=== PATIENT | female | born 1945 | race Caucasian/White ===

== ENCOUNTER → 2016-12-23 12:10 | Day surgery (SDC) | payer MEDICARE ==
[~2016-12-23 12:10] MED LIST: Buffered Lidocaine 0.9% SYRIN* 5 ML/SYR SYRINGE INTRADERM ONE; Bupivacaine 0.25% SDV* 30 ML ONE; Dexamethasone IV* 4 MG/ML 1 ML (4 MG) IV SLOW PU ONE; Dexamethasone IV* 4 MG/ML 1 ML (4 MG) ONE; EPHEDrine (Pressors)* 50 MG/ML VIAL ONE; HYDROcodone/ACETAMIN 5-325 MG* 1 TAB PO PRN; Ketorolac INJ* 30 MG/ML 1 ML VIAL ONE; Lidocaine 2% PF * 5 ML VIAL ONE; Midazolam* 1 MG/ML 2 ML VIAL (2 MG) ONE; Mivacurium Chloride* 20 MG/10 ML VIAL IV ONE; Ondansetron INJ* 2 MG/ML VIAL ONE; PROCHLORPERAZINE INJ 5 MG/ML 2 ML VIAL IV PRN; Propofol* 10 MG/ML 20 ML BTL IV PUSH ONE; ROPIVACAINE 5 MG/ML 30 ML BTL (0.5%) ONE; ceFAZolin 2 GM PREMIX (*) 2 GM/50 ML BAG IVPB ONE; fentaNYL* 50 MCG/ML 2 ML VIAL (100 MCG VIAL) IV PRN; fentaNYL* 50 MCG/ML 2 ML VIAL (100 MCG VIAL) ONE; oxyCODONE/Acetamin 5/325 MG* TAB ONE; oxyCODONE/Acetamin 5/325 MG* TAB PO PRN
[2016-12-23 17:39] VITALS: BP 120/68
--- NOTE | 2016-12-24 10:06 | OP ---
OPERATIVE REPORT: DATE OF OPERATION: 12/23/16. DATE OF : 43. SURGEON: Surjit Glez MD. ENGINEERING RESEARCH MANAGER: ELSIE Coyne ANESTHESIOLOGIST: Dr. Tsang. ANESTHESIA: General with interscalene block. PRE-OP DIAGNOSES: Right shoulder osteoarthritis with rotator cuff tear and bicipital tendinitis. POST-OP DIAGNOSES: Right shoulder osteoarthritis with rotator cuff tear and bicipital tendinitis. OPERATIVE PROCEDURE: Right shoulder arthroscopy with, 1. Extensive glenohumeral debridement including biceps tenotomy. 2. Subacromial decompression with acromioplasty. 3. Rotator cuff repair in a double-row fashion. IMPLANTS USED: Two 4.75 Healicoil and 1 MultiFix. INDICATIONS: Margarita Juarez is a 71-year-old female, who sustained an injury while gardening, recovering from her knee arthroplasty. She fell in August 2016. She failed conservative management and was diagnosed with a full thickness tear on her MRI. After extensive discussion of the the risks and benefits of the operative versus nonoperative treatment, she has elected to proceed with the operative treatment. We did talk with her how she is a candidate for reverse shoulder arthroplasty, but she preferred a rotator cuff repair. Risks and benefits of surgery versus nonoperative treatment were discussed at length. They included, but are not limited to bleeding, infection, damage to nerves, vessels, surrounding structures, wound nonhealing, persistent pain, need for further surgery, scarring, stiffness, incomplete relief of symptoms, risks of anesthesia. The patient has elected to proceed. DESCRIPTION OF PROCEDURE: The patient was greeted in the preoperative area by the attending surgeon. Correct extremity was marked and consent was confirmed. The patient then underwent interscalene nerve block by anesthesiologist, after which she was brought back to the operative suite. She was placed in the supine position on the operating room table. She underwent general anesthesia and endotracheal intubation, after which she was placed in the left lateral decubitus position. An axillary roll was placed. She was secured with a peg board. All bony prominences were padded. Her right arm was draped unsterile with 10 pounds of traction. The right shoulder was prepped and draped in usual sterile fashion beginning with chlorhexidine soap, scrub and alcohol wipe and a final prep with ChloraPrep. After appropriate surgical pause indicating site, side, procedure and administration of antibiotics, the standard posterolateral portal was made sharply with an 11 blade. The scope was introduced into the joint. Joint was examined. There was synovitis and inflammation about the anterior recess. There was a full- thickness tear of the anterior aspect of the supraspinatus was identified. The biceps had tendinosis and tendinopathy with with partial thickness tearing. The glenohumeral joint had grade 1 to 2 changes. The anterior portal was made in an outside-in fashion. The anterior, posterior, and superior labrum were debrided back in the usual fashion. The biceps was then tenotomized. The undersurface of the subscapularis appeared to be intact with partial thickness tearing. The shaver was used to debride back the anterior, posterior, and superior labrum. The undersurface of the infraspinatus was identified. It had mild amount of tearing. Once the debridement was completed and biceps tenotomy was completed, attention was directed to subacromial space. The scope was repositioned in the subacromial space. The lateral portal was made sharply with an 11 blade. The scope was introduced into the joint. Joint was examined and debrided of bursa. The undersurface of the acromion was skeletonized. We exposed the undersurface of the tear. The bone quality was quite poor. The CA ligament was peeled back. A small acromioplasty was done using a 4-0 oval jasen. Attention was directed to the rotator cuff. The previous tear was identified again, it appeared to be a small L-shaped tear, which involved the interval, apparently a small footprint of the supraspinatus was identified in the other side of the bicipital groove. The biceps was also identified and debrided. The cuff was probed and there was a partial-thickness tearing. The 11 blade was used to debride this biceps tissue back to expose the greater tuberosity, which was then prepared in usual fashion with the rasp as well as the 4-0 oval jasen to gently decorticate the bone. The shaver was used to debride back the rotator cuff. Once these were complete, the three 4.75 Healicoil anchors were placed along the medial row just next to the articular cartilage and placed with excellent purchase. Again, the bone quality was not great. The sutures were then passed through the tendon in horizontal mattress configuration, but the anterior one was placed through the supraspinatus tendon, which was torn anteriorly with care not greene the biceps and then the other portion of the supraspinatus. The remainder of sutures were passed in horizontal mattress configuration all the way to the infraspinatus and these were then tied down using arthroscopic knot tying technique. The sutures were then passed through MultiFix anchor, which was placed with excellent purchase. Final images were obtained. The remaining sutures were cut. The shoulder was taken through the range of motion and found to be stable. The wounds were copiously irrigated with sterile saline. The portals were closed 3- 0 nylon. Sterile dressings were applied as well as Cryo/Cuff and UltrasSling. She was awoken from anesthesia and transferred to PACU in stable condition. POSTOPERATIVE PLAN: She will be nonweightbearing. She will only have elbow, hand, and wrist range of motion. She will be on a sling for 6 weeks. She will start physical therapy in 4 weeks. I will see the patient back in 10 to 14 days. DVT prophylaxis was considered, but deferred due to no previous personal or family history. [id number]/[facility] #: [id number] [facility] HOSPITALNichelle
== END | disposition home or self-care (01) ==
LOC: OREAST 12:10
PROVIDERS: ATTEND Orthopaedic Surgery
DX: S46.011A Strain of muscle(s) and tendon(s) of the rotator cuff of right shoulder, initial encounter (principal); W18.39XA Other fall on same level, initial encounter; Y93.H2 Activity, gardening and landscaping; Y92.9 Unspecified place or not applicable; M19.011 Primary osteoarthritis, right shoulder; M75.21 Bicipital tendinitis, right shoulder; G89.18 Other acute postprocedural pain; Z87.891 Personal history of nicotine dependence; Z79.82 Long term (current) use of aspirin; J45.909 Unspecified asthma, uncomplicated; F32.9 Major depressive disorder, single episode, unspecified; F41.9 Anxiety disorder, unspecified; G47.33 Obstructive sleep apnea (adult) (pediatric); E07.9 Disorder of thyroid, unspecified
CPT/HCPCS: A9270-GY; C1713; J0690; J1100; J1885; J2250; J2405; J2704; J2795; J3010